=== PATIENT | female | born 1960 | race Caucasian/White ===

== ENCOUNTER → 2018-09-14 | Outpatient (CLI) | payer OTHER ==
[~2018-09-14] MED LIST: CYCL10; HYDROCODON-ACE1 EAC2; IBUP800
[2018-09-16 14:12] LABS: HPV 16 Negative (Negative); HPV 18 Negative (Negative); HPV OTHER HR TYPES Positive (Negative)
== END | disposition home or self-care (01) ==
LOC: LAB SHORT 19:11 → LAB 19:11
PROVIDERS: Nurse Practitioner Family
DX: Z01.411 Encounter for gynecological examination (general) (routine) with abnormal findings (principal)
CPT/HCPCS: 87624; 87625; G0145

== ENCOUNTER 2018-11-25 06:36 | Day surgery (SDC) | payer OTHER ==
[~2018-11-25] VITALS: Ht 167.6 cm; Wt 77.0 kg
--- NOTE | 2018-11-25 07:15 | NUR ---
11/25/18 0715 Rosemary Lewis 1 IV MISS IN RW BY EVERT VALVE 1 GOOD IV IN RAC BY EVERT PT TOW
== END 2018-11-25 08:45 | disposition home or self-care (01) ==
LOC: ORSCSDS 06:36
PROVIDERS: Surgery
PROC: 0DJD8ZZ Inspection of Lower Intestinal Tract, Via Natural or Artificial Opening Endoscopic (ICD-10-PCS; principal; 2018-11-25 08:00)
DX: Z83.71 Family history of colonic polyps (principal); Z12.11 Encounter for screening for malignant neoplasm of colon; Z87.891 Personal history of nicotine dependence; Z79.899 Other long term (current) drug therapy
CPT/HCPCS: J0330; J1980; J2250; J2405; J7120

== ENCOUNTER → 2019-09-20 | Outpatient (CLI) | payer OTHER ==
[2019-09-22 13:07] LABS: HPV 16 Negative (Negative); HPV 18 Negative (Negative); HPV OTHER HR TYPES Positive (Negative)
== END | disposition home or self-care (01) ==
LOC: LAB SHORT 19:03 → LAB 19:03
PROVIDERS: Physician Assistant
DX: Z01.419 Encounter for gynecological examination (general) (routine) without abnormal findings (principal)
CPT/HCPCS: 87624; G0145

== ENCOUNTER → 2020-12-25 | Outpatient (CLI) | payer OTHER ==
[2020-12-28 08:09] LABS: HPV 16 Negative (Negative); HPV 18 Negative (Negative); HPV OTHER HR TYPES Positive (Negative)
== END ==
LOC: LAB SHORT 11:16
PROVIDERS: Nurse Practitioner Family
DX: R87.810 Cervical high risk human papillomavirus (HPV) DNA test positive (principal)
CPT/HCPCS: 87624; G0145

== ENCOUNTER → 2021-04-10 | Outpatient (CLI) | payer OTHER ==
[2021-04-10 13:13] LABS: U Amphetamine Screen Not Detected; U Barbituate Screen Not Detected; U Benzodiazapine Screen Not Detected; U Cannabinoids Screen Not Detected; U Cocaine Screen Not Detected; U Methadone Screen Not Detected; U Methamphetamine Screen Not Detected; U Opiates Screen DETECTED; U Phencyclidine Screen Not Detected
[2021-04-10 13:14] LABS: U Buprenorphine Screen Not Detected; U Oxycodone Screen Not Detected; U Propoxyphene Screen Not Detected
== END | disposition home or self-care (01) ==
LOC: LAB SHORT 10:43 → LAB 10:43
PROVIDERS: Physician Assistant Medical
DX: Z51.81 Encounter for therapeutic drug level monitoring (principal); Z79.891 Long term (current) use of opiate analgesic

== ENCOUNTER → 2023-09-09 | Outpatient (CLI) | payer OTHER ==
[2023-09-09 19:52] LABS: Adenovirus F 40/41 Not Detected (NOT DETECT); Astrovirus Not Detected (NOT DETECT); Campylobacter Sp Not Detected (NOT DETECT); Cryptosporidium Not Detected (NOT DETECT); Cyclospora Cayetanensis Not Detected (NOT DETECT); E. Coli O157 Not Detected (NOT DETECT); Entamoeba Histolytica Not Detected (NOT DETECT); Enteroaggregative E. coli-EAEC Not Detected (NOT DETECT); Enteropathogenic E. coli-EPEC Not Detected (NOT DETECT); Enterotoxigenic E. coli-ETEC Not Detected (NOT DETECT); Giardia Lamblia Not Detected (NOT DETECT); Norovirus GI/GII Not Detected (NOT DETECT); Plesiomonas Shigelloides Not Detected (NOT DETECT); Rotavirus A Not Detected (NOT DETECT); Salmonella Sp Not Detected (NOT DETECT); Sapovirus Not Detected (NOT DETECT); Shiga Toxin-prod E. coli-STEC Not Detected (NOT DETECT); Shigella/Enteroin E. coli-EIEC Not Detected (NOT DETECT); Vibrio Cholerae Not Detected (NOT DETECT); Vibrio Sp Not Detected (NOT DETECT); Yersinia Enterocolitica Not Detected (NOT DETECT)
== END | disposition home or self-care (01) ==
LOC: LAB SHORT 12:35 → LAB 12:35
PROVIDERS: Family Medicine
DX: K52.9 Noninfective gastroenteritis and colitis, unspecified (principal)
CPT/HCPCS: 87507

== ENCOUNTER 2024-08-04 13:09 | Emergency (ER) | payer MEDICARE ==
[~2024-08-04] VITALS: Ht 165.1 cm; Wt 65.8 kg
[~2024-08-04 13:09] MED LIST changes: +BUPRENORPHINE HC2 M1; +CYCLOBENZAPRINE5 MG; +LOSA25; +ONDA4
[2024-08-04 15:27] LABS: BASOPHILS ABSOLUTE AUTO 0.01 K/mm3 (0.00-0.23); BASOPHILS PERCENT AUTO 0 % (0-2); EOSINOPHILS ABSOLUTE AUTO 0.06 K/mm3 (0.00-0.68); EOSINOPHILS PERCENT AUTO 1 % (0-6); Hematocrit 38.2 % (33.0-51.0); Hemoglobin 13.4 g/dL (11.5-16.0); IMMATURE GRAN ABSOLUTE AUTO 0.01 K/mm3 (0.00-0.10); IMMATURE GRAN PERCENT AUTO 0 % (0-1); LYMPHOCYTES ABSOLUTE AUTO 0.54 K/mm3 (0.84-5.20); LYMPHOCYTES PERCENT AUTO 11 % (21-46); MONOCYTES ABSOLUTE AUTO 0.52 K/mm3 (0.16-1.47); MONOCYTES PERCENT AUTO 10 % (4-13); Mean Corpuscular HGB 32.7 pg (26.0-34.0); Mean Corpuscular HGB Conc 35.1 g/dL (31.5-36.5); Mean Corpuscular Volume 93 fL (80-100); Mean Platelet Volume 8.2 fL (9.1-12.4); NEUTROPHILS PERCENT AUTO 77 % (41-73); Platelet Count 377 K/mm3 (150-400); RDW Coefficient Variation 11.7 % (11.7-14.2); RDW Standard Deviation 39.9 fL (35.1-46.3); White Blood Cell Count 5.04 K/mm3 (4.00-11.30)
[2024-08-04 15:57] LABS: Albumin, Blood 4.1 g/dL (3.4-5.0); Bilirubin, Total 0.6 mg/dL (0.1-1.0); Bun/Creatinine Ratio 6.4 (12.0-20.0); Calcium, Blood 9.5 mg/dL (8.5-10.1); Creatinine, Blood 0.78 mg/dL (0.40-1.00); Globulin, Blood 4.3 g/dL (2.2-4.0); Potassium, Blood 4.2 mmol/L (3.5-5.5); Total Protein, Blood 8.4 g/dL (6.4-8.2)
[2024-08-04 17:53] VITALS: BP 171/100
[2024-08-04] MEDS ORDERED: LOSA50 PO (17:56)
[2024-08-04] MEDS ORDERED: Diflucan100 MG PO (17:56)
[2024-08-04] MEDS ORDERED: HYDROCODONE-AC1 EAC7 PO (17:56)
[2024-08-04] MEDS ORDERED: CYCL10 PO (17:57)
[2024-08-04] MEDS ORDERED: NYSTATIN100000 U13 PO (17:57)
[2024-08-04] MEDS ORDERED: ONDA4ODT MM (17:58)
== END 2024-08-04 20:22 | disposition left against medical advice (07) ==
LOC: ER 13:09
PROVIDERS: Emergency Medicine
DX: R29.898 Other symptoms and signs involving the musculoskeletal system (principal); Z88.5 Allergy status to narcotic agent; Z88.1 Allergy status to other antibiotic agents; Z88.0 Allergy status to penicillin; Z79.899 Other long term (current) drug therapy; I10 Essential (primary) hypertension; Z87.891 Personal history of nicotine dependence
CPT/HCPCS: 70450; 80053; 85025; 93005; 93010; 99284-25

== ENCOUNTER 2024-08-05 08:30 | Emergency (ER) | payer MEDICARE ==
[~2024-08-05] VITALS: Ht 165.1 cm; Wt 65.8 kg
[~2024-08-05 08:30] MED LIST changes: +CYCL10 PO; +Diflucan100 MG PO; +HYDROCODONE-AC1 EAC7 PO; +LOSA50 PO; +NYSTATIN100000 U13 PO; +ONDA4ODT MM
[2024-08-05 10:23] VITALS: BP 130/71
== END 2024-08-05 10:24 | disposition home or self-care (01) ==
LOC: ER 08:30
DX: G56.31 Lesion of radial nerve, right upper limb (principal); I10 Essential (primary) hypertension; Z88.5 Allergy status to narcotic agent; Z88.0 Allergy status to penicillin; Z88.1 Allergy status to other antibiotic agents; Z88.8 Allergy status to other drugs, medicaments and biological substances; Z79.899 Other long term (current) drug therapy; Z87.891 Personal history of nicotine dependence
CPT/HCPCS: 99284-25